=== PATIENT | female | born 1955 | race Caucasian/White ===

== ENCOUNTER 2017-08-31 08:08 | Inpatient (IN) | payer SELFPAY ==
[~2017-08-31] VITALS: Ht 147.3 cm; Wt 78.0 kg
[2017-08-31 08:47] LABS: Basophils # (auto) 0.1 uL; Basophils % (auto) 0.9 % (0.0-2.0); Eosinophils # (auto) 0.2 uL; Eosinophils % (auto) 2.7 % (0.0-7.0); Hematocrit 37.3 % (36.0-46.0); Hemoglobin 12.8 g/dL (12.2-16.2); Lymphocytes % (auto) 34.1 % (10.0-50.0); Mean Corpuscular Hgb Conc. 34.2 g/dL (32.0-36.0); Mean Corpuscular Volume 96.5 fL (80.0-100.0); Monocytes # (auto) 0.6 uL; Monocytes % (auto) 7.2 % (0.0-12.0); Neutrophils # (auto) 4.8 uL; Neutrophils % (auto) 55.1 % (37.0-80.0); Nucleated Red Blood Cells % 0.1 %; Platelet Count (auto) 77 10^3/uL (140-450); Red Blood Cells 3.86 10^6/uL (4.0-5.20); Red Cell Distribution Width 13.5 % (11.8-14.3); White Blood Cell 8.8 10^3/uL (4.4-10.8)
[2017-08-31] MEDS ORDERED: PANTOPRAZOLE 80 MG in SODIUM CHL 0.9% 60 ML IV ONE (09:00)
[2017-08-31] MEDS ORDERED: OCTREOTIDE ACETATE 100 MCG in SODIUM CHL 0.9% 50 ML IV ONE (09:00)
[2017-08-31 09:03] LABS: Albumin 2.5 g/dL (3.4-5.0); BUN/Creatinine Ratio 40.3; Calcium 8.1 mg/dL (8.5-10.1); Potassium 4.4 mmol/L (3.5-5.1)
[2017-08-31 09:05] LABS: Bilirubin, Total 1.3 mg/dL (0.2-1.0); Total Protein 6.3 g/dL (6.4-8.2)
[2017-08-31 09:07] LABS: INR 1.16 (0.9-1.15); Partial Thromboplastin Time 26.5 sec (22.64-33.71); Prothrombin Time 12.7 sec (9.37-12.3)
[2017-08-31 10:33] LABS: Urine Bacteria FEW /hpf (None Seen); Urine Blood 1+ /uL (Negative); Urine Specific Gravity 1.009 (1.001-1.035); Urine WBC 12 /hpf (0 - 5)
[2017-08-31] MEDS: OCTREOTIDE ACETATE 500 MCG in SODIUM CHL 0.9% 99 ML IV SCH ×2 (10:33→20:15)
[2017-08-31] MEDS ORDERED: MIDAZOLAM HCL 5 MG/ML-1ML VIAL ONE (11:37)
[2017-08-31] MEDS ORDERED: fentaNYL CITRATE 100 MCG/2 ML VL ONE (11:37)
[2017-08-31] MEDS ORDERED: LIDOCAINE VISCOUS 2% 15ML UD ONE (11:37)
[2017-08-31] MEDS ORDERED: diphenhdrAMINE HCL 50 MG/1 ML VL ONE (11:40)
[2017-08-31] MEDS ORDERED: METOCLOPRAMIDE HCL 5MG/ml INJ 2ml VIAL IV ONE (11:45)
[2017-08-31] MEDS ORDERED: diphenhdrAMINE HCL 50 MG/1 ML VL IV ONE (12:00)
[2017-08-31] MEDS ORDERED: PANTOPRAZOLE 40 MG/10 ML VIAL IV ONE (13:00)
[2017-08-31] MEDS ORDERED: cefTRIAXone 1GM/10ml IVPUSH 10 ML IV ONE (13:00)
[2017-08-31] MEDS ORDERED: LORazepam 2MG/ML-1ML VIAL IV PRN (13:00)
[2017-08-31] MEDS ORDERED: NITROGLYCERIN 0.4 MG SL TAB SL PRN (13:00)
[2017-08-31] MEDS ORDERED: MORPHINE SULFATE 8mg/ml INJ SDV IV PRN (13:00)
[2017-08-31] MEDS ORDERED: DEXTROSE (50%) 50ML SYRG IV PRN (13:00)
[2017-08-31] MEDS ORDERED: MORPHINE SULFATE 4 MG/ML SYR/VIAL IV PRN ×2 (13:00)
[2017-08-31 13:53] LABS: Amylase 66 U/L (25-115); Lipase 357 U/L (73-393)
[2017-08-31] MEDS: SODIUM CHLORIDE 0.9% 1,000 ML IV SCH ×2 (14:32→20:50)
[2017-08-31] MEDS: metroNIDAZOLE 500MG/100ML 100 ML IV SCH ×2 (14:48→22:00)
[2017-08-31] MEDS: LACTULOSE 20Gm/30ML SOLN PO SCH ×2 (14:48→19:00)
[2017-08-31] MEDS: ACCU-CHEK COMFORT CURVE STRIP VI SCH ×2 (16:00→20:00)
[2017-08-31] MEDS: InsuLIN REG 1unit/0.01ml Soln (100units/ml) SC SCH ×2 (16:50→20:45)
[2017-08-31 18:12] LABS: Hematocrit 30.1 % (36.0-46.0); Hemoglobin 10.4 g/dL (12.2-16.2)
[2017-09-01 01:40] LABS: Hematocrit 26.6 % (36.0-46.0); Hemoglobin 9.2 g/dL (12.2-16.2)
[2017-09-01] MEDS: LACTULOSE 20Gm/30ML SOLN PO SCH ×4 (02:22→19:48)
[2017-09-01] MEDS: ACCU-CHEK COMFORT CURVE STRIP VI SCH ×6 (04:00→19:51)
[2017-09-01] MEDS: InsuLIN REG 1unit/0.01ml Soln (100units/ml) SC SCH ×6 (04:00→19:54)
[2017-09-01] MEDS: SODIUM CHLORIDE 0.9% 1,000 ML IV SCH ×2 (04:50→12:05)
[2017-09-01] MEDS: metroNIDAZOLE 500MG/100ML 100 ML IV SCH ×2 (06:14→13:42)
[2017-09-01] MEDS: OCTREOTIDE ACETATE 500 MCG in SODIUM CHL 0.9% 99 ML IV SCH ×2 (06:23→17:02)
[2017-09-01 07:17] LABS: Hemoglobin 8.9 g/dL (12.2-16.2)
[2017-09-01 07:19] LABS: Hematocrit 25.5 % (36.0-46.0)
[2017-09-01] MEDS: cefTRIAXone 1GM/10ml IVPUSH 10 ML IV SCH (09:19)
[2017-09-01 16:35] LABS: Basophils # (auto) 0 uL; Eosinophils # (auto) 0.1 uL; Eosinophils % (auto) 2.8 % (0.0-7.0); Hemoglobin 9.3 g/dL (12.2-16.2); Lymphocytes # (auto) 1.7 uL; Monocytes # (auto) 0.3 uL; Red Cell Distribution Width 13.7 % (11.8-14.3); White Blood Cell 4.9 10^3/uL (4.4-10.8)
[2017-09-01 16:37] LABS: Basophils % (auto) 0.6 % (0.0-2.0); Hematocrit 26.9 % (36.0-46.0); Lymphocytes % (auto) 34.5 % (10.0-50.0); Mean Corpuscular Hemoglobin 33.6 pg (28.0-32.0); Mean Corpuscular Hgb Conc. 34.5 g/dL (32.0-36.0); Mean Corpuscular Volume 97.4 fL (80.0-100.0); Monocytes % (auto) 6.1 % (0.0-12.0); Neutrophils # (auto) 2.8 uL; Nucleated Red Blood Cells % 0.2 %; Platelet Count (auto) 61 10^3/uL (140-450); Red Blood Cells 2.76 10^6/uL (4.0-5.20)
[2017-09-01 20:30] VITALS: BP 119/88
[2017-09-01 20:38] VITALS: BP 119/88
[2017-09-02 00:01] VITALS: BP 109/57
[2017-09-02] MEDS: InsuLIN REG 1unit/0.01ml Soln (100units/ml) SC SCH ×7 (00:05→23:51)
[2017-09-02] MEDS: SODIUM CHLORIDE 0.9% 1,000 ML IV SCH ×4 (00:35→20:26)
[2017-09-02] MEDS: LACTULOSE 20Gm/30ML SOLN PO SCH ×3 (01:00→23:01)
[2017-09-02] MEDS ORDERED: MULTCAP PO (01:34)
[2017-09-02] MEDS ORDERED: GLIP-116 PO (01:34)
[2017-09-02] MEDS ORDERED: SITA50TA28 PO (01:34)
[2017-09-02] MEDS ORDERED: CALC667C PO ×2 (01:34)
[2017-09-02] MEDS ORDERED: AMLO5TAB2 PO (01:34)
[2017-09-02] MEDS ORDERED: FERR-7 PO (01:34)
[2017-09-02] MEDS: OCTREOTIDE ACETATE 500 MCG in SODIUM CHL 0.9% 99 ML IV SCH (03:31)
[2017-09-02 04:00] VITALS: BP 112/62
[2017-09-02] MEDS: ACCU-CHEK COMFORT CURVE STRIP VI SCH ×7 (04:37→23:50)
[2017-09-02 05:21] LABS: Basophils # (auto) 0 uL; Basophils % (auto) 0.7 % (0.0-2.0); Eosinophils # (auto) 0.2 uL; Eosinophils % (auto) 4.2 % (0.0-7.0); Hematocrit 28.3 % (36.0-46.0); Hemoglobin 9.8 g/dL (12.2-16.2); Lymphocytes # (auto) 1.7 uL; Lymphocytes % (auto) 35.8 % (10.0-50.0); Mean Corpuscular Hemoglobin 33.6 pg (28.0-32.0); Mean Corpuscular Hgb Conc. 34.5 g/dL (32.0-36.0); Mean Corpuscular Volume 97.2 fL (80.0-100.0); Monocytes # (auto) 0.3 uL; Monocytes % (auto) 6.4 % (0.0-12.0); Neutrophils # (auto) 2.4 uL; Neutrophils % (auto) 52.9 % (37.0-80.0); Nucleated Red Blood Cells % 0.1 %; Platelet Count (auto) 60 10^3/uL (140-450); Red Blood Cells 2.91 10^6/uL (4.0-5.20); Red Cell Distribution Width 13.8 % (11.8-14.3); White Blood Cell 4.6 10^3/uL (4.4-10.8)
[2017-09-02 05:41] LABS: BUN/Creatinine Ratio 16.3; Calcium 7.3 mg/dL (8.5-10.1); Potassium 3.3 mmol/L (3.5-5.1)
[2017-09-02 05:42] LABS: Albumin 2.4 g/dL (3.4-5.0); Bilirubin, Direct 0.3 mg/dL (0-0.2); Bilirubin, Total 0.7 mg/dL (0.2-1.0); Magnesium 1.7 mg/dL (1.6-2.6)
[2017-09-02 05:45] LABS: INR 1.18 (0.9-1.15); Partial Thromboplastin Time 27.3 sec (22.64-33.71); Prothrombin Time 12.9 sec (9.37-12.3)
[2017-09-02] MEDS: cefTRIAXone 1GM/10ml IVPUSH 10 ML IV SCH (08:25)
[2017-09-02] MEDS ORDERED: POTASSIUM CHL 10% (20 MEQ/15ML) 15ml ORAL SOLN PO ONE (09:45)
[2017-09-02] MEDS: PROMETHAZINE HCL 25 MG/ML 1ML IV PRN (11:44)
[2017-09-02 11:50] VITALS: BP 143/56
[2017-09-02 17:00] VITALS: BP 111/41
[2017-09-02 22:00] VITALS: BP 153/72
[2017-09-03] MEDS: InsuLIN REG 1unit/0.01ml Soln (100units/ml) SC SCH ×5 (03:37→20:00)
[2017-09-03] MEDS: ACCU-CHEK COMFORT CURVE STRIP VI SCH ×5 (03:37→20:00)
[2017-09-03] MEDS: SODIUM CHLORIDE 0.9% 1,000 ML IV SCH ×3 (04:12→21:08)
[2017-09-03 05:00] VITALS: BP 115/72
[2017-09-03 06:25] LABS: Basophils # (auto) 0 uL; Eosinophils # (auto) 0.2 uL; Hemoglobin 9.8 g/dL (12.2-16.2); Lymphocytes # (auto) 1.6 uL; Monocytes # (auto) 0.3 uL
[2017-09-03 06:29] LABS: Basophils % (auto) 0.6 % (0.0-2.0); Eosinophils % (auto) 4.7 % (0.0-7.0); Lymphocytes % (auto) 34.8 % (10.0-50.0); Mean Corpuscular Hemoglobin 34.1 pg (28.0-32.0); Mean Corpuscular Volume 97.4 fL (80.0-100.0); Neutrophils # (auto) 2.4 uL; Neutrophils % (auto) 52.9 % (37.0-80.0); Nucleated Red Blood Cells % 0.2 %; Platelet Count (auto) 63 10^3/uL (140-450); Red Blood Cells 2.88 10^6/uL (4.0-5.20); Red Cell Distribution Width 13.6 % (11.8-14.3); White Blood Cell 4.5 10^3/uL (4.4-10.8)
[2017-09-03 06:51] LABS: BUN/Creatinine Ratio 21.6; Calcium 7.6 mg/dL (8.5-10.1); Potassium 3.7 mmol/L (3.5-5.1)
[2017-09-03 09:04] VITALS: BP 119/53
[2017-09-03 09:24] LABS: Hepatitis B Surface Antibody Negative
[2017-09-03] MEDS: cefTRIAXone 1GM/10ml IVPUSH 10 ML IV SCH (09:27)
[2017-09-03] MEDS: PANTOPRAZOLE 40 MG TAB PO SCH ×2 (09:28→21:09)
[2017-09-03] MEDS: PROMETHAZINE HCL 25 MG/ML 1ML IV PRN (09:30)
[2017-09-03] MEDS: LACTULOSE 20Gm/30ML SOLN PO SCH ×2 (09:42→21:08)
[2017-09-03 09:45] LABS: Hepatitis A Total Antibody Positive
[2017-09-03 10:04] LABS: Hepatitis B Core Total AB Negative; Hepatitis B Surface Antigen Negative (Negative); Hepatitis C Antibody Negative (Negative)
[2017-09-03] MEDS ORDERED: ACETAMINOPHEN 325 MG TAB PO PRN (12:00)
[2017-09-03] MEDS ORDERED: ACETAMINOPHEN 325 MG TAB PO ONE (12:01)
[2017-09-03 13:00] VITALS: BP 112/60
[2017-09-03] MEDS ORDERED: OCTREOTIDE ACETATE 100 MCG in SODIUM CHL 0.9% 50 ML IV ONE (13:45)
[2017-09-03] MEDS: OCTREOTIDE ACETATE 500 MCG in SODIUM CHL 0.9% 99 ML IV SCH (15:09)
[2017-09-03] MEDS ORDERED: IOHEXOL 350 MG/ML 100ML IJ ONE (15:22)
[2017-09-03 16:23] VITALS: BP 103/55
[2017-09-03 18:03] LABS: Hematocrit 25.7 % (36.0-46.0); Hemoglobin 8.8 g/dL (12.2-16.2)
[2017-09-03 19:50] VITALS: BP 120/59
[2017-09-04] VITALS: BP 117/57
[2017-09-04] MEDS: InsuLIN REG 1unit/0.01ml Soln (100units/ml) SC SCH ×6 (00:30→20:00)
[2017-09-04 00:55] LABS: Hemoglobin 7.8 g/dL (12.2-16.2)
[2017-09-04 00:57] LABS: Hematocrit 22.2 % (36.0-46.0)
[2017-09-04] MEDS: ACCU-CHEK COMFORT CURVE STRIP VI SCH ×6 (01:12→21:22)
[2017-09-04] MEDS: OCTREOTIDE ACETATE 500 MCG in SODIUM CHL 0.9% 99 ML IV SCH ×3 (01:12→21:22)
[2017-09-04 04:00] VITALS: BP 132/66
[2017-09-04 04:55] LABS: Eosinophils # (auto) 0.2 uL; Hemoglobin 7.7 g/dL (12.2-16.2); Nucleated Red Blood Cells % 0.2 %
[2017-09-04 04:57] LABS: Basophils # (auto) 0 uL; Basophils % (auto) 0.6 % (0.0-2.0); Eosinophils % (auto) 3.1 % (0.0-7.0); Hematocrit 21.9 % (36.0-46.0); Lymphocytes # (auto) 1.7 uL; Lymphocytes % (auto) 28.9 % (10.0-50.0); Mean Corpuscular Hemoglobin 34.3 pg (28.0-32.0); Mean Corpuscular Hgb Conc. 35.1 g/dL (32.0-36.0); Monocytes # (auto) 0.4 uL; Monocytes % (auto) 6.2 % (0.0-12.0); Neutrophils # (auto) 3.5 uL; Neutrophils % (auto) 61.2 % (37.0-80.0); Platelet Count (auto) 70 10^3/uL (140-450); Red Blood Cells 2.24 10^6/uL (4.0-5.20); Red Cell Distribution Width 13.8 % (11.8-14.3); White Blood Cell 5.7 10^3/uL (4.4-10.8)
[2017-09-04 05:09] LABS: Calcium 7.3 mg/dL (8.5-10.1); Potassium 3.5 mmol/L (3.5-5.1)
[2017-09-04 05:11] LABS: BUN/Creatinine Ratio 20.7
[2017-09-04] MEDS: SODIUM CHLORIDE 0.9% 1,000 ML IV SCH ×3 (06:08→21:22)
[2017-09-04 07:58] VITALS: BP 117/68
[2017-09-04] MEDS: LACTULOSE 20Gm/30ML SOLN PO SCH ×3 (09:30→21:59)
[2017-09-04] MEDS: PANTOPRAZOLE 40 MG TAB PO SCH ×3 (09:30→21:59)
[2017-09-04] MEDS: cefTRIAXone 1GM/10ml IVPUSH 10 ML IV SCH (09:31)
[2017-09-04] MEDS ORDERED: IODIXANOL 320MG/ML 100ML BTL IV ONE (09:53)
[2017-09-04] MEDS ORDERED: LIDOCAINE 2%HCL (LOCAL ANESTH.) INJ 20ML MDV ONE (09:54)
[2017-09-04] MEDS ORDERED: PNEUMOCOCCAL VACC POLYS 25 MCG/0.5 ML VIAL SUBCUT ONE (10:00)
[2017-09-04] MEDS ORDERED: MIDAZOLAM HCL 1MG/1ML-2 ML VIAL ONE (10:35)
[2017-09-04] MEDS ORDERED: fentaNYL CITRATE 100 MCG/2 ML VL ONE (10:35)
[2017-09-04] MEDS ORDERED: IOHEXOL 350 MG/ML 100ML IJ ONE (10:38)
[2017-09-04 12:00] VITALS: BP 145/71
[2017-09-04] MEDS ORDERED: GELATIN 1 SPONGE SIZE 50 TOP ONE (12:24)
[2017-09-04 16:00] VITALS: BP 114/40
[2017-09-04] MEDS: PROMETHAZINE HCL 25 MG/ML 1ML IV PRN (17:15)
[2017-09-04 18:45] LABS: Hematocrit 24.3 % (36.0-46.0); Hemoglobin 7.9 g/dL (12.2-16.2)
[2017-09-04 20:04] VITALS: BP 124/58
[2017-09-05] VITALS (7 sets, daily range): BP systolic 116–123; BP diastolic 50–66
[2017-09-05] MEDS: ACCU-CHEK COMFORT CURVE STRIP VI SCH ×7 (00:52→23:08)
[2017-09-05 00:58] LABS: Hemoglobin 7.4 g/dL (12.2-16.2)
[2017-09-05] MEDS: InsuLIN REG 1unit/0.01ml Soln (100units/ml) SC SCH ×7 (04:00→23:09)
[2017-09-05] MEDS: SODIUM CHLORIDE 0.9% 1,000 ML IV SCH ×2 (04:04→15:26)
[2017-09-05 05:54] LABS: BUN/Creatinine Ratio 16.7; Calcium 7.2 mg/dL (8.5-10.1); Potassium 3.7 mmol/L (3.5-5.1)
[2017-09-05 05:55] LABS: Basophils # (auto) 0 uL; Hemoglobin 7.4 g/dL (12.2-16.2); Lymphocytes # (auto) 1.3 uL; Monocytes # (auto) 0.5 uL; Neutrophils # (auto) 6.2 uL; Red Cell Distribution Width 14.4 % (11.8-14.3); White Blood Cell 8.2 10^3/uL (4.4-10.8)
[2017-09-05 05:57] LABS: Basophils % (auto) 0.5 % (0.0-2.0); Eosinophils # (auto) 0.1 uL; Eosinophils % (auto) 1.8 % (0.0-7.0); Hematocrit 21.7 % (36.0-46.0); Lymphocytes % (auto) 16.1 % (10.0-50.0); Mean Corpuscular Hemoglobin 33.7 pg (28.0-32.0); Mean Corpuscular Hgb Conc. 34.2 g/dL (32.0-36.0); Mean Corpuscular Volume 98.5 fL (80.0-100.0); Monocytes % (auto) 6.4 % (0.0-12.0); Neutrophils % (auto) 75.2 % (37.0-80.0); Nucleated Red Blood Cells % 0.2 %; Platelet Count (auto) 77 10^3/uL (140-450)
[2017-09-05] MEDS: OCTREOTIDE ACETATE 500 MCG in SODIUM CHL 0.9% 99 ML IV SCH ×2 (06:29→17:56)
[2017-09-05] MEDS: cefTRIAXone 1GM/10ml IVPUSH 10 ML IV SCH (09:06)
[2017-09-05] MEDS: PANTOPRAZOLE 40 MG TAB PO SCH ×2 (09:57→22:12)
[2017-09-05] MEDS: LACTULOSE 20Gm/30ML SOLN PO SCH ×2 (09:58→22:12)
[2017-09-05 12:17] LABS: Hemoglobin 7.9 g/dL (12.2-16.2)
[2017-09-05 12:19] LABS: Hematocrit 22.9 % (36.0-46.0)
[2017-09-05 18:21] LABS: Hematocrit 21.4 % (36.0-46.0); Hemoglobin 7.4 g/dL (12.2-16.2)
[2017-09-06] VITALS (24 sets, daily range): BP systolic 112–133; BP diastolic 40–69
[2017-09-06] MEDS: SODIUM CHLORIDE 0.9% 1,000 ML IV SCH ×3 (00:41→13:06)
[2017-09-06 01:12] LABS: Hematocrit 19.6 % (36.0-46.0)
[2017-09-06 01:23] LABS: Hemoglobin 6.9 g/dL (12.2-16.2)
[2017-09-06 02:28] LABS: BUN/Creatinine Ratio 9.7; Potassium 3.3 mmol/L (3.5-5.1)
[2017-09-06] MEDS: ACCU-CHEK COMFORT CURVE STRIP VI SCH ×5 (04:12→20:00)
[2017-09-06] MEDS: InsuLIN REG 1unit/0.01ml Soln (100units/ml) SC SCH ×5 (04:14→20:35)
[2017-09-06] MEDS: OCTREOTIDE ACETATE 500 MCG in SODIUM CHL 0.9% 99 ML IV SCH (04:18)
[2017-09-06] MEDS: cefTRIAXone 1GM/10ml IVPUSH 10 ML IV SCH (08:42)
[2017-09-06] MEDS: LACTULOSE 20Gm/30ML SOLN PO SCH ×2 (10:00→22:00)
[2017-09-06] MEDS ORDERED: IOHEXOL 300 MG/ML 100ML BOTTLE IJ ONE (12:01)
[2017-09-06] MEDS: PANTOPRAZOLE 40 MG TAB PO SCH ×2 (13:06→22:00)
[2017-09-06 15:09] LABS: Basophils # (auto) 0 uL; Basophils % (auto) 0.6 % (0.0-2.0); Eosinophils # (auto) 0.1 uL; Eosinophils % (auto) 1.9 % (0.0-7.0); Hematocrit 28.3 % (36.0-46.0); Hemoglobin 9.7 g/dL (12.2-16.2); Lymphocytes # (auto) 1.1 uL; Lymphocytes % (auto) 16.4 % (10.0-50.0); Mean Corpuscular Hemoglobin 31.9 pg (28.0-32.0); Mean Corpuscular Hgb Conc. 34.2 g/dL (32.0-36.0); Mean Corpuscular Volume 93.3 fL (80.0-100.0); Monocytes # (auto) 0.5 uL; Monocytes % (auto) 7.8 % (0.0-12.0); Neutrophils # (auto) 4.9 uL; Neutrophils % (auto) 73.3 % (37.0-80.0); Nucleated Red Blood Cells % 0.4 %; Platelet Count (auto) 68 10^3/uL (140-450); Red Blood Cells 3.04 10^6/uL (4.0-5.20); Red Cell Distribution Width 16.1 % (11.8-14.3); White Blood Cell 6.7 10^3/uL (4.4-10.8)
[2017-09-07] MEDS: ACCU-CHEK COMFORT CURVE STRIP VI SCH ×6 (00:13→21:25)
[2017-09-07] MEDS: InsuLIN REG 1unit/0.01ml Soln (100units/ml) SC SCH ×6 (00:13→21:46)
[2017-09-07 05:00] VITALS: BP 118/43
[2017-09-07 06:30] LABS: Hematocrit 25.6 % (36.0-46.0); Hemoglobin 8.9 g/dL (12.2-16.2)
[2017-09-07] MEDS: SODIUM CHLORIDE 0.9% 1,000 ML IV SCH (07:00)
[2017-09-07 09:00] VITALS: BP 125/69
[2017-09-07] MEDS: PANTOPRAZOLE 40 MG TAB PO SCH ×2 (09:07→21:25)
[2017-09-07] MEDS: LACTULOSE 20Gm/30ML SOLN PO SCH ×2 (09:08→22:00)
[2017-09-07 13:00] VITALS: BP 130/63
[2017-09-07 17:00] VITALS: BP 134/63
[2017-09-07 22:00] VITALS: BP 137/64
[2017-09-08] MEDS: ACCU-CHEK COMFORT CURVE STRIP VI SCH ×5 (00:58→16:00)
[2017-09-08] MEDS: InsuLIN REG 1unit/0.01ml Soln (100units/ml) SC SCH ×5 (00:58→16:00)
[2017-09-08] MEDS: SODIUM CHLORIDE 0.9% 1,000 ML IV SCH (03:37)
[2017-09-08 05:00] VITALS: BP 119/53
[2017-09-08 06:50] LABS: Hemoglobin 8.9 g/dL (12.2-16.2)
[2017-09-08 08:43] VITALS: BP 104/53
[2017-09-08] MEDS: LACTULOSE 20Gm/30ML SOLN PO SCH (09:36)
[2017-09-08] MEDS: PANTOPRAZOLE 40 MG TAB PO SCH (09:36)
[2017-09-08 12:30] VITALS: BP 110/53
[2017-09-08 16:04] VITALS: BP 110/53
[2017-09-08 16:47] VITALS: BP 135/67
== END 2017-09-08 19:25 | disposition home or self-care (01) | DRG 423 ==
LOC: EDBD 08:08 → ER 08:13 → TELE 08:14 → DOU IN ICU 09-01 20:18 → TELE-CENTR 09-02 16:05 → DOU IN ICU 09-03 18:21 → TELE-WESTW 09-06 22:53
PROVIDERS: ADMIT Internal Medicine; ATTEND Internal Medicine Pulmonary Disease
PROC: 0DJ08ZZ Inspection of Upper Intestinal Tract, Via Natural or Artificial Opening Endoscopic (ICD-10-PCS; principal; 2017-08-31 13:34)
PROC: 06L Lower Veins, Occlusion (ICD-10-PCS; 2017-09-04)
PROC: 30233N1 Transfusion of Nonautologous Red Blood Cells into Peripheral Vein, Percutaneous Approach (ICD-10-PCS; 2017-09-06)
DX: K74.60 Unspecified cirrhosis of liver (principal); I85.11 Secondary esophageal varices with bleeding; D69.6 Thrombocytopenia, unspecified; E44.0 Moderate protein-calorie malnutrition; K72.90 Hepatic failure, unspecified without coma; D62 Acute posthemorrhagic anemia; E11.65 Type 2 diabetes mellitus with hyperglycemia; N39.0 Urinary tract infection, site not specified; B96.20 Unspecified Escherichia coli [E. coli] as the cause of diseases classified elsewhere; E66.9 Obesity, unspecified; E87.6 Hypokalemia; I10 Essential (primary) hypertension; I86.4 Gastric varices; K29.70 Gastritis, unspecified, without bleeding; K76.0 Fatty (change of) liver, not elsewhere classified; Z68.35 Body mass index [BMI] 35.0-35.9, adult; Z80.0 Family history of malignant neoplasm of digestive organs
CPT/HCPCS: 36415; 71045; 74176; 74177; 76000; 76937; 80048; 80053; 80076; 81001; 82140; 82150; 82962; 83036; 83690; 83735; 85014; 85018; 85025; 85045; 85610; 85730; 86704; 86706; 86708; 86803; 86850; 86900; 86901; 86920; 87040; 87081; 87086; 87088; 87186; 87340; 93005; 96365; 96367; 96375; 99152; 99153; 99291; C1769; C9113; J1815; J2250; J3490; Q9967

== ENCOUNTER → 2018-01-08 | Outpatient (CLI) | payer MEDICAID ==
[~2018-01-08] MED LIST: CALC667C PO; FERR-7 PO; GLIP-116 PO; MULTCAP PO; SITA50TA28 PO
[2018-01-08 09:09] LABS: Basophils # (auto) 0 uL; Monocytes # (auto) 0.3 uL; Nucleated Red Blood Cells % 0.1 %; White Blood Cell 3.6 10^3/uL (4.4-10.8)
[2018-01-08 09:11] LABS: Basophils % (auto) 0.5 % (0.0-2.0); Eosinophils # (auto) 0.2 uL; Eosinophils % (auto) 4.6 % (0.0-7.0); Hematocrit 36.3 % (36.0-46.0); Hemoglobin 11.8 g/dL (12.2-16.2); Lymphocytes % (auto) 28.6 % (10.0-50.0); Mean Corpuscular Hemoglobin 24.8 pg (28.0-32.0); Mean Corpuscular Hgb Conc. 32.5 g/dL (32.0-36.0); Mean Corpuscular Volume 76.3 fL (80.0-100.0); Neutrophils # (auto) 2.1 uL; Neutrophils % (auto) 58.3 % (37.0-80.0); Platelet Count (auto) 65 10^3/uL (140-450); Red Blood Cells 4.76 10^6/uL (4.0-5.20)
[2018-01-08 09:21] LABS: INR 1.07 (0.9-1.15); Prothrombin Time 11.4 sec (9.27-12.13)
[2018-01-08 09:27] LABS: Albumin 3.2 g/dL (3.4-5.0); BUN/Creatinine Ratio 16.4; Calcium 8.3 mg/dL (8.5-10.1); Potassium 3.9 mmol/L (3.5-5.1)
[2018-01-08 09:29] LABS: Bilirubin, Total 1.2 mg/dL (0.2-1.0); Total Protein 7.4 g/dL (6.4-8.2)
[2018-01-08 09:33] LABS: Red Cell Distribution Width 21.2 % (11.8-14.3)
== END | disposition home or self-care (01) ==
LOC: LAB 08:02
PROVIDERS: ATTEND Internal Medicine Gastroenterology
DX: R10.9 Unspecified abdominal pain (principal); E11.9 Type 2 diabetes mellitus without complications; I10 Essential (primary) hypertension
CPT/HCPCS: 36415; 80053; 82105; 85025; 85610

== ENCOUNTER 2018-03-22 22:44 | Inpatient (IN) | payer MEDICAID ==
[~2018-03-22] VITALS: Ht 152.4 cm; Wt 77.1 kg
[2018-03-22 23:34] LABS: Basophils # (auto) 0 uL; Basophils % (auto) 0.5 % (0.0-2.0); Eosinophils # (auto) 0.1 uL; Eosinophils % (auto) 2.5 % (0.0-7.0); Hematocrit 40.2 % (36.0-46.0); Hemoglobin 13.2 g/dL (12.2-16.2); Lymphocytes # (auto) 1.3 uL; Lymphocytes % (auto) 31.7 % (10.0-50.0); Mean Corpuscular Hemoglobin 27.8 pg (28.0-32.0); Mean Corpuscular Hgb Conc. 32.9 g/dL (32.0-36.0); Mean Corpuscular Volume 84.5 fL (80.0-100.0); Monocytes # (auto) 0.4 uL; Monocytes % (auto) 9.7 % (0.0-12.0); Neutrophils # (auto) 2.3 uL; Neutrophils % (auto) 55.6 % (37.0-80.0); Nucleated Red Blood Cells % 0.2 %; Platelet Count (auto) 66 10^3/uL (140-450); Red Blood Cells 4.75 10^6/uL (4.0-5.20); Red Cell Distribution Width 19.8 % (11.8-14.3); White Blood Cell 4.2 10^3/uL (4.4-10.8)
[2018-03-22 23:45] LABS: Albumin 3.1 g/dL (3.4-5.0); BUN/Creatinine Ratio 16.5; Calcium 8.5 mg/dL (8.5-10.1); Potassium 3.9 mmol/L (3.5-5.1)
[2018-03-22 23:47] LABS: Bilirubin, Total 0.7 mg/dL (0.2-1.0); Total Protein 7.7 g/dL (6.4-8.2)
[2018-03-23 00:03] LABS: Urine Bacteria NONE SEEN /hpf (None Seen); Urine Blood Negative /uL (Negative); Urine Specific Gravity 1.022 (1.001-1.035); Urine WBC <1 /hpf (0 - 5)
[2018-03-23] MEDS ORDERED: InsuLIN REG 1unit/0.01ml Soln (100units/ml) IV ONE (00:30)
[2018-03-23] MEDS ORDERED: InsuLIN REG 1unit/0.01ml Soln (100units/ml) ONE (00:34)
[2018-03-23] MEDS ORDERED: DEXTROSE (50%) 50ML SYRG IV PRN (02:45)
[2018-03-23] MEDS ORDERED: ONDANSETRON HCL 4 MG/2 ML VIAL IV PRN (02:45)
[2018-03-23] MEDS ORDERED: TEMAZEPAM 15 MG CAP PO PRN (02:45)
[2018-03-23] MEDS ORDERED: cloNIDine HCL 0.1 MG TAB PO PRN (02:45)
[2018-03-23 05:00] VITALS: BP 131/63
[2018-03-23] MEDS: InsuLIN REG 1unit/0.01ml Soln (100units/ml) SC SCH ×3 (06:23→17:41)
[2018-03-23] MEDS: ACCU-CHEK COMFORT CURVE STRIP VI SCH ×3 (06:23→17:41)
[2018-03-23 09:43] VITALS: BP 116/62
[2018-03-23] MEDS ORDERED: HCTZ 25 MG TAB PO SCH (10:00)
[2018-03-23] MEDS: FAMOTIDINE 20 MG TAB PO SCH ×2 (10:04→22:01)
[2018-03-23] MEDS: LISINOPRIL 20 MG TAB PO SCH (10:05)
[2018-03-23] MEDS: amLODIPine BESYLATE 5 MG TAB PO SCH (10:07)
[2018-03-23 14:07] VITALS: BP 133/55
[2018-03-23] MEDS ORDERED: LORazepam 2MG/ML-1ML VIAL IV PRN (15:30)
[2018-03-23] MEDS ORDERED: IOHEXOL 350 MG/ML 100ML IJ ONE (15:56)
[2018-03-23 16:31] LABS: Cholesterol 157 mg/dL (< 200); HDL Cholesterol 54 mg/dL (40-59); LDL Cholesterol 95 mg/dL (< 100); Triglycerides 165 mg/dL (< 150)
[2018-03-23] MEDS: SODIUM CHLORIDE 0.9% 1,000 ML IV SCH (17:00)
[2018-03-23 17:02] VITALS: BP 125/78
[2018-03-23] MEDS: glipiZIDE 5 MG TAB PO SCH (17:41)
[2018-03-23] MEDS ORDERED: metFORMIN HYDROCHLORIDE 500 MG TAB PO SCH (18:00)
[2018-03-23 22:00] VITALS: BP 122/66
[2018-03-23] MEDS: ATORVASTATIN 20 MG TAB PO SCH (22:01)
[2018-03-24] MEDS: SODIUM CHLORIDE 0.9% 1,000 ML IV SCH ×4 (00:24→23:57)
[2018-03-24] MEDS: ACCU-CHEK COMFORT CURVE STRIP VI SCH ×5 (00:24→23:53)
[2018-03-24] MEDS: InsuLIN REG 1unit/0.01ml Soln (100units/ml) SC SCH ×5 (00:25→23:53)
[2018-03-24 05:00] VITALS: BP 103/56
[2018-03-24 05:20] LABS: Basophils # (auto) 0 uL; Eosinophils # (auto) 0.1 uL; Lymphocytes # (auto) 1.5 uL; Nucleated Red Blood Cells % 0.1 %
[2018-03-24 05:23] LABS: Basophils % (auto) 0.7 % (0.0-2.0); Eosinophils % (auto) 3.5 % (0.0-7.0); Hematocrit 35.4 % (36.0-46.0); Lymphocytes % (auto) 37.1 % (10.0-50.0); Mean Corpuscular Hemoglobin 28.3 pg (28.0-32.0); Mean Corpuscular Hgb Conc. 33.8 g/dL (32.0-36.0); Mean Corpuscular Volume 83.7 fL (80.0-100.0); Monocytes # (auto) 0.4 uL; Monocytes % (auto) 9.2 % (0.0-12.0); Neutrophils % (auto) 49.5 % (37.0-80.0); Platelet Count (auto) 62 10^3/uL (140-450); Red Blood Cells 4.23 10^6/uL (4.0-5.20); Red Cell Distribution Width 19.8 % (11.8-14.3)
[2018-03-24 05:48] LABS: Potassium 3.4 mmol/L (3.5-5.1)
[2018-03-24 05:58] LABS: Albumin 2.6 g/dL (3.4-5.0); BUN/Creatinine Ratio 22.2; Bilirubin, Total 0.9 mg/dL (0.2-1.0); Calcium 7.8 mg/dL (8.5-10.1); Total Protein 6.5 g/dL (6.4-8.2)
[2018-03-24] MEDS: glipiZIDE 5 MG TAB PO SCH ×2 (06:35→17:32)
[2018-03-24] MEDS: FAMOTIDINE 20 MG TAB PO SCH ×2 (09:50→21:43)
[2018-03-24] MEDS: ASPirin-EC 81 mg tab PO SCH (09:50)
[2018-03-24] MEDS: LISINOPRIL 20 MG TAB PO SCH (09:51)
[2018-03-24] MEDS: amLODIPine BESYLATE 5 MG TAB PO SCH (09:54)
[2018-03-24 10:47] VITALS: BP 118/62
[2018-03-24] MEDS ORDERED: POTASSIUM CHL 20 Meq TABLET PO ONE (12:30)
[2018-03-24 13:31] VITALS: BP 127/64
[2018-03-24 17:28] VITALS: BP 133/72
[2018-03-24 21:30] VITALS: BP 130/67
[2018-03-24] MEDS: ATORVASTATIN 20 MG TAB PO SCH (21:42)
[2018-03-25 05:00] VITALS: BP 131/63
[2018-03-25] MEDS: ACCU-CHEK COMFORT CURVE STRIP VI SCH ×3 (06:45→18:00)
[2018-03-25] MEDS: glipiZIDE 5 MG TAB PO SCH ×2 (06:45→18:00)
[2018-03-25] MEDS: InsuLIN REG 1unit/0.01ml Soln (100units/ml) SC SCH ×3 (06:45→18:00)
[2018-03-25] MEDS: metFORMIN HYDROCHLORIDE 500 MG TAB PO SCH ×2 (06:46→18:00)
[2018-03-25 08:07] VITALS: BP 115/68
[2018-03-25] MEDS: SODIUM CHLORIDE 0.9% 1,000 ML IV SCH ×2 (10:17→15:30)
[2018-03-25] MEDS: ASPirin-EC 81 mg tab PO SCH (10:17)
[2018-03-25] MEDS: LISINOPRIL 20 MG TAB PO SCH (10:18)
[2018-03-25] MEDS: amLODIPine BESYLATE 5 MG TAB PO SCH (10:18)
[2018-03-25] MEDS: FAMOTIDINE 20 MG TAB PO SCH (10:18)
[2018-03-25 13:00] VITALS: BP 130/82
[2018-03-25 16:10] VITALS: BP 130/82
[2018-03-25 17:00] VITALS: BP 143/68
== END 2018-03-25 18:00 | disposition home or self-care (01) | DRG 54 ==
LOC: ER 22:44 → OVERFLOW 03-23 02:41 → WEST WING 03-23 03:35
PROVIDERS: ADMIT Nurse Practitioner; ATTEND Internal Medicine
DX: G43.909 Migraine, unspecified, not intractable, without status migrainosus (principal); D69.6 Thrombocytopenia, unspecified; E44.0 Moderate protein-calorie malnutrition; K74.60 Unspecified cirrhosis of liver; E11.65 Type 2 diabetes mellitus with hyperglycemia; D72.819 Decreased white blood cell count, unspecified; I10 Essential (primary) hypertension; Z79.82 Long term (current) use of aspirin; Z79.899 Other long term (current) drug therapy
CPT/HCPCS: 36415; 70450; 70496; 70498; 70551; 80053; 80061; 81001; 82962; 83036; 84484; 85025; 93005; 93306; 96374; G0378; J1815; J2405

== ENCOUNTER 2019-11-30 17:53 | Emergency (ER) | payer MEDICAID ==
[~2019-11-30] VITALS: Ht 147.3 cm; Wt 72.6 kg
[~2019-11-30 17:53] MED LIST changes: -GLIP-116 PO; +GLIP10TA9 PO
[2019-11-30 19:53] LABS: Basophils # (auto) 0.1 10 ^3/uL (0-0.2); Eosinophils # (auto) 0.1 10 ^3/uL (0-0.8); Eosinophils % (auto) 2.1 % (0.0-7.0); Hemoglobin 15.1 g/dL (12.2-16.2); Lymphocytes # (auto) 1.2 10 ^3/uL (0.4-5.4); Lymphocytes % (auto) 20.2 % (10.0-50.0); Mean Corpuscular Hemoglobin 32.1 pg (28.0-32.0); Mean Corpuscular Hgb Conc. 33.6 g/dL (32.0-36.0); Mean Corpuscular Volume 95.6 fL (80.0-100.0); Monocytes # (auto) 0.4 10 ^3/uL (0-1.3); Monocytes % (auto) 6.9 % (0.0-12.0); Neutrophils % (auto) 69.8 % (37.0-80.0); Platelet Count (auto) 82 10^3/uL (140-450); Red Cell Distribution Width 14.7 % (11.8-14.3); White Blood Cell 5.8 10^3/uL (4.4-10.8)
[2019-11-30 20:27] LABS: Albumin 3.7 g/dL (3.4-5.0); Calcium 9.2 mg/dL (8.5-10.1); Potassium 4.3 mmol/L (3.5-5.1)
[2019-11-30 20:31] LABS: BUN/Creatinine Ratio 22.1; Bilirubin, Total 1.4 mg/dL (0.2-1.0); Total Protein 8.4 g/dL (6.4-8.2)
[2019-12-01 02:20] VITALS: BP 118/61
== END 2019-12-01 02:22 | disposition home or self-care (01) ==
LOC: ER 17:53
DX: K62.5 Hemorrhage of anus and rectum (principal); R74.8 Abnormal levels of other serum enzymes; E11.9 Type 2 diabetes mellitus without complications; I10 Essential (primary) hypertension
CPT/HCPCS: 36415; 74176; 80053; 85025

== ENCOUNTER 2022-07-28 18:24 | Inpatient (IN) | payer MEDICARE, MEDICAID ==
[~2022-07-28] VITALS: Ht 147.3 cm; Wt 67.3 kg
[2022-07-28 19:24] LABS: Eosinophils # (auto) 0 10 ^3/uL (0-0.8); Hemoglobin 15.2 g/dL (12.2-16.2); Monocytes # (auto) 0.6 10 ^3/uL (0-1.3); Monocytes % (auto) 5.5 % (0.0-12.0); Red Cell Distribution Width 16.6 % (11.8-14.3)
[2022-07-28 19:26] LABS: Basophils # (auto) 0 10 ^3/uL (0-0.2); Basophils % (auto) 0.3 % (0.0-2.0); Eosinophils % (auto) 0.3 % (0.0-7.0); Lymphocytes % (auto) 9.4 % (10.0-50.0); Mean Corpuscular Hemoglobin 34.6 pg (28.0-32.0); Mean Corpuscular Hgb Conc. 34.6 g/dL (32.0-36.0); Neutrophils # (auto) 9.3 10 ^3/uL (1.6-8.6); Neutrophils % (auto) 84.5 % (37.0-80.0)
[2022-07-28 19:40] LABS: Albumin 2.5 g/dL (3.4-5.0); BUN/Creatinine Ratio 18.8 (10.0-20.0); Calcium 8.2 mg/dL (8.5-10.1); Potassium 4.3 mmol/L (3.5-5.1)
[2022-07-28 19:42] LABS: Lactic Acid w/Reflex 3.2 mmol/L (0.4-2.0)
[2022-07-28 19:50] LABS: Bilirubin, Total 4.4 mg/dL (0.2-1.0); Total Protein 6.8 g/dL (6.4-8.2)
[2022-07-28] MEDS ORDERED: SODIUM CHLORIDE 0.9% 500 ML IV ONE (21:15)
[2022-07-28 21:29] LABS: Urine Bacteria FEW /hpf (None Seen); Urine Blood Negative /uL (Negative); Urine Hyaline Cast FEW /lpf (0 - 2); Urine Specific Gravity 1.029 (1.001-1.035); Urine WBC 12 /hpf (0 - 5)
[2022-07-29] MEDS ORDERED: DEXTROSE (50%) 50ML SYRG IV PRN (04:00)
[2022-07-29] MEDS ORDERED: ONDANSETRON HCL 4 MG/2 ML VIAL IV PRN (04:00)
[2022-07-29] MEDS ORDERED: NITROGLYCERIN 0.4 MG SL TAB SL PRN (04:00)
[2022-07-29] MEDS ORDERED: ACETAMINOPHEN 325 MG TAB PO PRN (04:00)
[2022-07-29] MEDS ORDERED: DOCUSATE SOD 100 MG CAP PO PRN (04:00)
[2022-07-29] MEDS ORDERED: cefTRIAXone 1GM/50ML D5W 50 ML IV ONE (04:00)
[2022-07-29] MEDS ORDERED: HYDROcodone-ACET 5/325MG TAB PO PRN (04:00)
[2022-07-29] MEDS ORDERED: MORPHINE SULFATE INJ 2 MG/ml SYRG IV PRN (04:00)
[2022-07-29] MEDS ORDERED: ALBUMIN 25% 100 ML IV ONE (04:00)
[2022-07-29] MEDS: SODIUM CHLORIDE 0.9% 1,000 ML IV SCH ×2 (05:21→20:40)
[2022-07-29 06:28] LABS: Basophils # (auto) 0 10 ^3/uL (0-0.2); Hemoglobin 11.8 g/dL (12.2-16.2); Lymphocytes # (auto) 0.9 10 ^3/uL (0.4-5.4); Monocytes # (auto) 0.4 10 ^3/uL (0-1.3); Monocytes % (auto) 8.7 % (0.0-12.0); Neutrophils # (auto) 3.5 10 ^3/uL (1.6-8.6); White Blood Cell 4.9 10^3/uL (4.4-10.8)
[2022-07-29 06:30] LABS: Basophils % (auto) 0.2 % (0.0-2.0); Eosinophils # (auto) 0 10 ^3/uL (0-0.8); Eosinophils % (auto) 0.8 % (0.0-7.0); Hematocrit 33.9 % (36.0-46.0); Mean Corpuscular Hgb Conc. 34.8 g/dL (32.0-36.0); Mean Corpuscular Volume 100.4 fL (80.0-100.0); Neutrophils % (auto) 72.3 % (37.0-80.0); Nucleated Red Blood Cells % 0.2 %; Red Blood Cells 3.38 10^6/uL (4.0-5.20); Red Cell Distribution Width 16.2 % (11.8-14.3)
[2022-07-29 06:51] LABS: Albumin 2.5 g/dL (3.4-5.0); BUN/Creatinine Ratio 37.7 (10.0-20.0); Calcium 7.4 mg/dL (8.5-10.1); Potassium 3.4 mmol/L (3.5-5.1)
[2022-07-29] MEDS: InsuLIN REG 1unit/0.01ml Soln (100units/ml) SC SCH ×4 (06:56→21:54)
[2022-07-29] MEDS: ACCU-CHEK COMFORT CURVE STRIP VI SCH ×4 (06:56→21:54)
[2022-07-29 07:00] LABS: Bilirubin, Total 3.8 mg/dL (0.2-1.0); Total Protein 5.6 g/dL (6.4-8.2)
[2022-07-29 11:15] VITALS: BP 117/44
[2022-07-29 11:48] VITALS: BP 117/44
[2022-07-29 16:10] VITALS: BP 113/52
[2022-07-29] MEDS ORDERED: ONDA-155 PO (16:40)
[2022-07-29] MEDS ORDERED: PANT40TA2 PO (16:40)
[2022-07-29] MEDS ORDERED: LOPE2CAP PO (16:40)
[2022-07-29] MEDS ORDERED: AMLO-489 PO (16:40)
[2022-07-29] MEDS ORDERED: FERR-20 PO (16:40)
[2022-07-29] MEDS ORDERED: EMPA1TAB PO (16:40)
[2022-07-29] MEDS ORDERED: HYDR25TA4 PO (16:40)
[2022-07-29] MEDS ORDERED: LISI20TA28 PO (16:40)
[2022-07-29 20:00] VITALS: BP 112/56
[2022-07-29 22:00] VITALS: BP 124/57
[2022-07-30] VITALS (7 sets, daily range): BP systolic 109–140; BP diastolic 58–65
[2022-07-30 05:54] LABS: Basophils # (auto) 0 10 ^3/uL (0-0.2); Eosinophils # (auto) 0.1 10 ^3/uL (0-0.8); Hemoglobin 12.4 g/dL (12.2-16.2); Neutrophils # (auto) 1.6 10 ^3/uL (1.6-8.6); White Blood Cell 2.7 10^3/uL (4.4-10.8)
[2022-07-30 05:57] LABS: Basophils % (auto) 0.5 % (0.0-2.0); Eosinophils % (auto) 2.3 % (0.0-7.0); Hematocrit 35.8 % (36.0-46.0); Lymphocytes # (auto) 0.8 10 ^3/uL (0.4-5.4); Lymphocytes % (auto) 28.5 % (10.0-50.0); Mean Corpuscular Hemoglobin 34.9 pg (28.0-32.0); Mean Corpuscular Hgb Conc. 34.7 g/dL (32.0-36.0); Mean Corpuscular Volume 100.6 fL (80.0-100.0); Monocytes # (auto) 0.3 10 ^3/uL (0-1.3); Monocytes % (auto) 9.5 % (0.0-12.0); Neutrophils % (auto) 59.2 % (37.0-80.0); Nucleated Red Blood Cells % 0.2 %; Red Blood Cells 3.55 10^6/uL (4.0-5.20); Red Cell Distribution Width 16.6 % (11.8-14.3)
[2022-07-30 06:14] LABS: Potassium 3.7 mmol/L (3.5-5.1)
[2022-07-30] MEDS: ACCU-CHEK COMFORT CURVE STRIP VI SCH ×4 (06:21→21:32)
[2022-07-30] MEDS: InsuLIN REG 1unit/0.01ml Soln (100units/ml) SC SCH ×4 (06:21→21:35)
[2022-07-30 06:23] LABS: Albumin 2.2 g/dL (3.4-5.0); BUN/Creatinine Ratio 38.7 (10.0-20.0); Bilirubin, Total 2.6 mg/dL (0.2-1.0); Calcium 7.5 mg/dL (8.5-10.1); Total Protein 5.6 g/dL (6.4-8.2)
[2022-07-30] MEDS ORDERED: LOPERAMIDE HCL 2 MG CAP/TAB PO PRN (09:15)
[2022-07-30] MEDS: cefTRIAXone 1GM/50ML D5W 50 ML IV SCH (09:22)
[2022-07-30] MEDS ORDERED: ENOXAPARIN SOD 40 MG/0.4 ML SYRINGE SC SCH (10:00)
[2022-07-30] MEDS: LISINOPRIL 20 MG TAB PO SCH (10:19)
[2022-07-30] MEDS: PANTOPRAZOLE 40 MG TAB PO SCH (10:20)
[2022-07-30] MEDS: HCTZ 25 MG TAB PO SCH (10:20)
[2022-07-30] MEDS: amLODIPine BESYLATE 5 MG TAB PO SCH (10:28)
[2022-07-30] MEDS ORDERED: FERROUS SULFATE 325mg EC TAB PO SCH (18:00)
[2022-07-31 05:00] VITALS: BP 116/48
[2022-07-31 06:11] LABS: Basophils # (auto) 0 10 ^3/uL (0-0.2); Eosinophils # (auto) 0.1 10 ^3/uL (0-0.8); Hemoglobin 12.9 g/dL (12.2-16.2); Lymphocytes # (auto) 0.8 10 ^3/uL (0.4-5.4); Monocytes # (auto) 0.2 10 ^3/uL (0-1.3); Red Cell Distribution Width 15.8 % (11.8-14.3)
[2022-07-31 06:15] LABS: Basophils % (auto) 0.7 % (0.0-2.0); Eosinophils % (auto) 3.4 % (0.0-7.0); Hematocrit 36.9 % (36.0-46.0); Mean Corpuscular Hemoglobin 34.7 pg (28.0-32.0); Mean Corpuscular Hgb Conc. 35.1 g/dL (32.0-36.0); Mean Corpuscular Volume 98.9 fL (80.0-100.0); Monocytes % (auto) 6.3 % (0.0-12.0); Neutrophils # (auto) 1.6 10 ^3/uL (1.6-8.6); Neutrophils % (auto) 60.6 % (37.0-80.0); Nucleated Red Blood Cells % 0.1 %; Red Blood Cells 3.73 10^6/uL (4.0-5.20); White Blood Cell 2.7 10^3/uL (4.4-10.8)
[2022-07-31 06:23] LABS: Albumin 2.3 g/dL (3.4-5.0); Calcium 7.9 mg/dL (8.5-10.1); Potassium 3.8 mmol/L (3.5-5.1)
[2022-07-31 06:26] LABS: INR 1.21 (0.9-1.15)
[2022-07-31 06:27] LABS: BUN/Creatinine Ratio 26.5 (10.0-20.0); Bilirubin, Total 2.7 mg/dL (0.2-1.0); Total Protein 5.7 g/dL (6.4-8.2)
[2022-07-31] MEDS: ACCU-CHEK COMFORT CURVE STRIP VI SCH ×2 (06:32→12:03)
[2022-07-31] MEDS: InsuLIN REG 1unit/0.01ml Soln (100units/ml) SC SCH ×2 (06:33→12:02)
[2022-07-31] MEDS ORDERED: EMPAGLIFLOZIN 10 MG TAB PO SCH (07:00)
[2022-07-31 07:30] VITALS: BP 132/62
[2022-07-31 08:30] VITALS: BP 132/62
[2022-07-31] MEDS: cefTRIAXone 1GM/50ML D5W 50 ML IV SCH (09:26)
[2022-07-31] MEDS: HCTZ 25 MG TAB PO SCH (09:26)
[2022-07-31] MEDS: amLODIPine BESYLATE 5 MG TAB PO SCH (09:27)
[2022-07-31] MEDS: LISINOPRIL 20 MG TAB PO SCH (09:27)
[2022-07-31] MEDS: PANTOPRAZOLE 40 MG TAB PO SCH (09:31)
[2022-07-31] MEDS ORDERED: CEPH-510 PO (13:56)
[2022-07-31] MEDS ORDERED: MULTCAP PO (13:56)
[2022-07-31 14:55] VITALS: BP 135/58
== END 2022-07-31 15:41 | disposition home or self-care (01) | DRG 374 ==
LOC: ER 18:24 → OVERFLOW 07-29 03:50 → WEST WING 07-29 10:36
PROVIDERS: ADMIT Nurse Practitioner Family; ATTEND Internal Medicine
DX: C78.6 Secondary malignant neoplasm of retroperitoneum and peritoneum (principal); E43 Unspecified severe protein-calorie malnutrition; N30.00 Acute cystitis without hematuria; Z68.31 Body mass index [BMI] 31.0-31.9, adult; D69.6 Thrombocytopenia, unspecified; K74.60 Unspecified cirrhosis of liver; Z20.822 Contact with and (suspected) exposure to COVID-19; K57.30 Diverticulosis of large intestine without perforation or abscess without bleeding; I25.10 Atherosclerotic heart disease of native coronary artery without angina pectoris; I10 Essential (primary) hypertension; E88.09 Other disorders of plasma-protein metabolism, not elsewhere classified; E11.9 Type 2 diabetes mellitus without complications; Z85.038 Personal history of other malignant neoplasm of large intestine; Z79.84 Long term (current) use of oral hypoglycemic drugs; Z90.49 Acquired absence of other specified parts of digestive tract
CPT/HCPCS: 36415; 71045; 80053; 81001; 82105; 82270; 82378; 82962; 83036; 83605; 83690; 84443; 84484; 85025; 85048; 85610; 85730; 86301; 87045; 87086; 87177; 87426; 87427; 96361; 96365; 96367; G0378; J0696; J1815; P9047

== ENCOUNTER 2022-11-10 11:02 | Emergency (ER) | payer MEDICARE, MEDICAID ==
[~2022-11-10] VITALS: Ht 147.3 cm; Wt 63.0 kg
[~2022-11-10 11:02] MED LIST changes: +AMLO1TAB22 PO; +CEPH-510 PO; +EMPA1TAB PO; +FERR325T24 PO; +HYDR25TA4 PO; +LISI20TA56 PO; +LOPE2CAP PO; +ONDA-155 PO; +PANT40TA2 PO
[2022-11-10 12:27] VITALS: BP 130/49
[2022-11-10] MEDS ORDERED: CEPH500C PO (13:28)
[2022-11-10] MEDS ORDERED: ACET-1080 PO (13:28)
== END 2022-11-10 13:38 | disposition home or self-care (01) ==
LOC: ER 11:02
DX: S60.453A Superficial foreign body of left middle finger, initial encounter (principal); I10 Essential (primary) hypertension; E11.9 Type 2 diabetes mellitus without complications; Z87.821 Personal history of retained foreign body fully removed; Z85.9 Personal history of malignant neoplasm, unspecified; Z98.890 Other specified postprocedural states; Z79.1 Long term (current) use of non-steroidal anti-inflammatories (NSAID); Z79.84 Long term (current) use of oral hypoglycemic drugs; Z79.899 Other long term (current) drug therapy; W22.8XXA Striking against or struck by other objects, initial encounter; Y93.89 Activity, other specified; Y92.89 Other specified places as the place of occurrence of the external cause; Y99.8 Other external cause status

== ENCOUNTER 2023-03-02 13:44 | Emergency (ER) | payer MEDICARE, MEDICAID ==
[~2023-03-02] VITALS: Ht 152.4 cm; Wt 75.0 kg
[~2023-03-02 13:44] MED LIST changes: +ACET-1080 PO; +CEPH500C PO
[2023-03-02 13:53] VITALS: BP 154/67; PULSE 67; RESP 18; TEMP 97.6; O2SAT 98
[2023-03-02 15:45] LABS: Basophils # (auto) 0 10 ^3/uL (0-0.2); Basophils % (auto) 0.6 % (0.0-2.0); Eosinophils # (auto) 0.1 10 ^3/uL (0-0.8); Hemoglobin 15.3 g/dL (12.2-16.2); Monocytes # (auto) 0.3 10 ^3/uL (0-1.3); Neutrophils # (auto) 2.6 10 ^3/uL (1.6-8.6); Nucleated Red Blood Cells % 0.2 %; Red Cell Distribution Width 15.3 % (11.8-14.3)
[2023-03-02 15:48] LABS: Eosinophils % (auto) 1.5 % (0.0-7.0); Hematocrit 44.7 % (36.0-46.0); Lymphocytes # (auto) 0.8 10 ^3/uL (0.4-5.4); Mean Corpuscular Hemoglobin 34.4 pg (28.0-32.0); Mean Corpuscular Hgb Conc. 34.1 g/dL (32.0-36.0); Mean Corpuscular Volume 100.8 fL (80.0-100.0); Monocytes % (auto) 8.9 % (0.0-12.0); Red Blood Cells 4.44 10^6/uL (4.0-5.20); White Blood Cell 3.8 10^3/uL (4.4-10.8)
[2023-03-02 16:08] LABS: Alanine Aminotransferase 56 U/L (7-40); Albumin 3.4 g/dL (3.2-4.8); Alkaline Phosphatase 270 U/L (46-116); Anion Gap 6 (5-15); Aspartate Aminotransferase 78 U/L (13-40); BUN/Creatinine Ratio 21.2 (10.0-20.0); Blood Urea Nitrogen 14 mg/dL (9-23); Calcium 8.9 mg/dL (8.5-10.1); Carbon Dioxide 30 mmol/L (20-30); Chloride 104 mmol/L (98-107); Glucose 238 mg/dL (74-106); Sodium 140 mmol/L (136-145)
[2023-03-02 16:09] LABS: Bilirubin, Total 2.9 mg/dL (0.2-1.0); Total Protein 6.9 g/dL (5.7-8.2)
[2023-03-02 16:17] LABS: CRP High Sensitivity 2.08 mg/dL (<1.0)
[2023-03-02 16:25] LABS: Erythrocyte Sedimentation Rate 20 mm/hr (0-20)
[2023-03-02] MEDS ORDERED: ACETAMINOPHEN 500 MG TAB PO ONE (17:15)
== END 2023-03-02 17:48 | disposition home or self-care (01) ==
LOC: ER 13:44
DX: H11.32 Conjunctival hemorrhage, left eye (principal); D69.6 Thrombocytopenia, unspecified; R51.9 Headache, unspecified; I10 Essential (primary) hypertension; E11.9 Type 2 diabetes mellitus without complications; Z85.9 Personal history of malignant neoplasm, unspecified; Z98.890 Other specified postprocedural states; Z79.899 Other long term (current) drug therapy
CPT/HCPCS: 36415; 80053; 85025; 85652; 86141

== ENCOUNTER 2024-09-18 17:41 | Emergency (ER) | payer MEDICARE, MEDICAID ==
[~2024-09-18] VITALS: Ht 144.8 cm; Wt 60.8 kg
[2024-09-18 18:54] LABS: Basophils # (auto) 0 10 ^3/uL (0-0.2); Basophils % (auto) 0.9 % (0.0-2.0); Eosinophils # (auto) 0.1 10 ^3/uL (0-0.8); Eosinophils % (auto) 1.8 % (0.0-7.0); Hematocrit 41.8 % (36.0-46.0); Hemoglobin 14.3 g/dL (12.2-16.2); Lymphocytes # (auto) 0.7 10 ^3/uL (0.4-5.4); Mean Corpuscular Hemoglobin 34.2 pg (28.0-32.0); Mean Corpuscular Hgb Conc. 34.1 g/dL (32.0-36.0); Mean Corpuscular Volume 100.3 fL (80.0-100.0); Monocytes # (auto) 0.4 10 ^3/uL (0-1.3); Monocytes % (auto) 8.9 % (0.0-12.0); Neutrophils # (auto) 3.1 10 ^3/uL (1.6-8.6); Neutrophils % (auto) 71.4 % (37.0-80.0); Platelet Count (auto) 38 10^3/uL (140-450); Red Blood Cells 4.17 10^6/uL (4.0-5.20); Red Cell Distribution Width 15.1 % (11.8-14.3); White Blood Cell 4.3 10^3/uL (4.4-10.8)
[2024-09-18 19:01] LABS: Chloride 103 mmol/L (98-107); Potassium 4.1 mmol/L (3.5-5.1); Sodium 139 mmol/L (136-145)
[2024-09-18 19:02] LABS: Anion Gap 8 (5-15); Carbon Dioxide 28 mmol/L (20-31)
[2024-09-18 19:03] LABS: Calcium 9.6 mg/dL (8.7-10.4)
[2024-09-18 19:08] LABS: BUN/Creatinine Ratio 22.8 (10.0-20.0); Blood Urea Nitrogen 21 mg/dL (9-23)
[2024-09-18 19:10] LABS: Glucose 283 mg/dL (74-106)
[2024-09-18 19:45] LABS: Platelet Estimate Decreased
[2024-09-18 19:51] LABS: Macrocytosis Slight
[2024-09-18 20:07] LABS: Urine Bacteria FEW /hpf (None Seen); Urine Blood Negative /uL (Negative); Urine Clarity Clear (Clear); Urine Color Light-Yellow (Yellow); Urine Protein, UAD Negative (Negative); Urine Specific Gravity 1.027 (1.001-1.035); Urine Squamous Epithelial Cell FEW /hpf (<5); Urine Urobilinogen Normal (Negative); Urine WBC 5 /HPF (0-5)
[2024-09-18] MEDS ORDERED: CEPH250C PO (21:10)
--- NOTE | 2024-09-18 21:11 | ED.PDOC ---
History of Present Illness HPI Comments Patient is a pleasant but obese 69-year-old female who arrives to the ED today with complaints of generalized weakness and intermittent headache for the past few days. Patient recently had blood work and was told that her platelets were low. Patient states she has had a history of anemia that required transfusions. Patient denies any knowledge as to why she had suffers from blood product concerns. Patient denies any fever nausea or vomiting. Vital signs were stable at arrival. Chief Complaint: Abnormal LAB's Time Seen by MD: 17:48 Primary Care Provider: UNKNOWN Reviewed Notes: Nurses Notes Allergies: Coded Allergies: NO KNOWN ALLERGIES (Unverified , 08/31/17) Home Meds Active Scripts Acetaminophen (Tylenol 8 Hour Arthritis) 650 Mg Tab, 650 MG PO TID, #30 TAB Prov:RENETTA DODD 11/10/22 Cephalexin Monohydrate (Cephalexin) 500 Mg Cap, 1 CAP PO TID, #30 CAP Prov:RENETTA DODD 11/10/22 Cephalexin ( Keflex 500) 500 Mg Cap, 1 CAP PO TID for 5 Days, #15 CAP Prov:BON SHANKAR MD 07/31/22 Multiple Vitamins W/ Minerals (V-C Forte) Cap, 1 TAB PO DAILY for 30 Days, #30 CAP Prov:BON SHANKAR MD 07/31/22 Reported Medications Loperamide Hcl (Loperamide Hcl) 2 Mg Cap, 2 MG PO PRN for FOR DIARRHEA, MG 07/29/22 Pantoprazole Sodium Sesquihydr (Protonix) 40 Mg Tab, 40 MG PO DAILY, #30 TAB 07/29/22 Ondansetron HCl (Ondansetron) 4 Mg Tab, 4 MG PO PRN for NAUSEA / VOMITING, TAB 07/29/22 Empagliflozin (Jardiance) 10 Mg Tab, 10 MG PO DAILY, TAB 07/29/22 Ferrous Sulfate (Ferrous Sulfate) 325 Mg Tab, 325 MG PO BIDWM for 30 Days, MG 07/29/22 Amlodipine Besylate (Amlodipine Besylate) 5 Mg Tab, 10 MG PO DAILY for 30 Days, MG 07/29/22 Hydrochlorothiazide (Hydrochlorothiazide) 25 Mg Tab, 25 MG PO DAILY for 30 Days, MG 07/29/22 Lisinopril (Lisinopril) 20 Mg Tab, 20 MG PO DAILY for 30 Days, MG 07/29/22 Sitagliptin-Metformin Hcl (JANUMET XR) 1 Tab Tab, 1 TAB PO BID, TAB 09/02/17 Calcium Acetate (Phosphate Bin (Calcium Acetate) 667 Mg Cap, 600 MG PO DAILY for 30 Days, MG 09/02/17 Ferrous Sulfate (Iron) 325 Mg Tab, 325 MG PO DAILY, TAB 09/02/17 Glipizide (Glipizide) 10 Mg Tab, 10 MG PO BID for 30 Days, MG 09/02/17 Information Source: Patient Mode of Arrival: Ambulatory Severity: Moderate Timing: Days Duration: Since onset Prehospital treatment: None Past Medical History PAST MEDICAL HISTORY: Cancer, DM, HTN, Liver Surgical History: Hernia Repair TECHNOLOGY APPLICATIONS CONSULTANT History: Denies all TECHNOLOGY APPLICATIONS CONSULTANT Hx Family History Family History: Reviewed,noncontributory to illness Social History Smoker: Non-Smoker Alcohol: Denies ETOH Use Drugs: Denies Drug Use Lives In: Home Constitutional: reports: fatigue; denies: chills, diaphoresis, fever, malaise, sweats, weakness, others EENTM: denies: blurred vision, double vision, ear bleeding, ear discharge, ear drainage, ear pain, ear ringing, eye pain, eye redness, hearing loss, mouth pain, mouth swelling, nasal discharge, nose bleeding, nose congestion, nose pain, photophobia, tearing, throat pain, throat swelling, voice changes, others Respiratory: denies: cough, hemoptysis, orthopnea, SOB at rest, shortness of breath, SOB with excertion, stridor, wheezing, others Cardiovascular: denies: chest pain, dizzy spells, diaphoresis, Dyspnea on exertion, edema, irregular heart beat, left arm pain, lightheadedness, palpitations, PND, syncope, others Gastrointestinal: denies: abdomen distended, abdominal pain, blood streaked bowels, constipated, diarrhea, dysphagia, difficulty swallowing, hematemesis, melena, nausea, poor appetite, poor fluid intake, rectal bleeding, rectal pain, vomiting, others Genitourinary: denies: abnormal vagina bleeding, burning, dyspareunia, dysuria, flank pain, frequency, hematuria, incontinence, pain, , vagina discharge, urgency, others Neurological: reports: headache; denies: dizziness, fainting, left sided numbness, left sided weakness, numbness, paresthesia, pre-existing deficit, right sided numbness, right sided weakness, seizure, speech problems, tingling, tremors, weakness, others Musculoskeletal: denies: back pain, gout, joint pain, joint swelling, muscle pain, muscle stiffness, neck pain, others Integumetry: denies: bruises, change in color, change in hair/nails, dryness, laceration, lesions, lumps, rash, wounds, others Allergic/Immunocompromised: denies: Difficulty Healing, Frequent Infections, Hives, Itching, others Hematologic/Lymphatic: denies: anemia, blood clots, easy bleeding, easy bruising, swollen glands, others Endocrine: denies: excessive hunger, excessive sweating, excessive thirst, excessive urination, flushing, intolerance to cold, intolerance to heat, unexplained weight gain, unexplained weight loss, others Psychiatric: denies: anxiety, bipolar disorder, depression, hopeless, panic disorder, schizophrenia, sleepless, suicidal, others Physical Exam General Appearance: Mild Distress (Patient appears to be in mild distress at time of evaluation. Patient did not look toxic.), Obese HEENT: Normal ENT Inspection, Pharynx Normal, TMs Normal Neck: Full Range of Motion, Non-Tender, Normal, Normal Inspection Respiratory: Chest Non-Tender, Lungs Clear, No Accessory Muscle Use, No Respiratory Distress, Normal Breath Sounds Cardiovascular: No Edema, No JVD, No Murmur, No Gallop, Normal Peripheral Pulses, Regular Rate/Rhythm Breast Exam: Deferred Gastrointestinal: No Organomegaly, Non Tender, No Pulsatile Mass, Normal Bowel Sounds, Soft Genitalia: Deferred Pelvic: Deferred Rectal: Deferred Extremities: No calf tenderness, Normal capillary refill, Non-tender, No pedal edema Neurologic: Alert, No Motor Deficits, Normal Affect, Normal Mood, No Sensory Deficits Cerebellar Function: Normal Reflexes: Normal Skin: Dry, Normal Color, Warm Lymphatic: No Adenopathy Was a procedure done? Was a procedure done?: No Differential Dx Considerations may include: Anemia, thrombocytopenia, pancytopenia, sepsis, electrolyte abnormality X-Ray, Labs, Meds, VS Vital Signs Date Time Temp Pulse Resp B/P (MAP) Pulse Ox O2 Delivery O2 Flow Rate FiO2 09/18/24 18:15 99.1 70 16 133/54 (80) 97 99.1 09/18/24 18:13 72 Lab Test 09/18/24 19:47 09/18/24 18:34 Range/Units Urine Color Light-yellow Yellow Urine Clarity Clear Clear Urine pH 6.0 5.0-9.0 Urine Specific [place] 1.027 1.001-1.035 Urine Protein Negative Negative Urine Ketones Negative Negative Urine Blood Negative Negative /uL Urine Nitrite Negative Negative Urine Bilirubin Negative Negative Urine Urobilinogen Normal Negative mg/dL Urine Leukocyte Esterase 2+ Negative /uL Urine RBC 1 0 - 4 /hpf Urine Microscopic WBC 5 0-5 /HPF Urine Squamous Epithelial Cells Few <5 /hpf Urine Bacteria Few H None Seen /hpf Urine Glucose 4+ H Normal mg/dL White Blood Count 4.3 L 4.4-10.8 10^3/uL Red Blood Count 4.17 4.0-5.20 10^6/uL Hemoglobin 14.3 12.2-16.2 g/dL Hematocrit 41.8 36.0-46.0 % Mean Corpuscular Volume 100.3 H 80.0-100.0 fL Mean Corpuscular Hemoglobin 34.2 H 28.0-32.0 pg Mean Corpuscular Hemoglobin Concent 34.1 32.0-36.0 g/dL Red Cell Distribution Width 15.1 H 11.8-14.3 % Platelet Count 38 L 140-450 10^3/uL Mean Platelet Volume 10.1 6.9-10.8 fL Neutrophils (%) (Auto) 71.4 37.0-80.0 % Lymphocytes (%) (Auto) 17.0 10.0-50.0 % Monocytes (%) (Auto) 8.9 0.0-12.0 % Eosinophils (%) (Auto) 1.8 0.0-7.0 % Basophils (%) (Auto) 0.9 0.0-2.0 % Neutrophils # (Auto) 3.1 1.6-8.6 10 ^3/uL Lymphocytes # (Auto) 0.7 0.4-5.4 10 ^3/uL Monocytes # (Auto) 0.4 0-1.3 10 ^3/uL Eosinophils # (Auto) 0.1 0-0.8 10 ^3/uL Basophils # (Auto) 0 0-0.2 10 ^3/uL Nucleated Red Blood Cells 0.0 % Platelet Estimate Decreased Macrocytosis Slight Sodium Level 139 136-145 mmol/L Potassium Level 4.1 3.5-5.1 mmol/L Chloride Level 103 98-107 mmol/L Carbon Dioxide Level 28 20-31 mmol/L Anion Gap 8 5-15 Blood Urea Nitrogen 21 9-23 mg/dL Creatinine 0.92 0.550-1.02 mg/dL Glomerular Filtration Rate Calc 68 >90 mL/min BUN/Creatinine Ratio 22.8 H 10.0-20.0 Serum Glucose 283 H 74-106 mg/dL Calcium Level 9.6 8.7-10.4 mg/dL Troponin I High Sensitivity 4 </=34 ng/L X-Ray, Labs, Meds, VS Comment All studies performed the ED were evaluated by me personally. Serum laboratories revealed a thrombocytopenic state with a platelet count of 30 eight. Additional findings of hyperglycemia as well as a urinary tract infection were noted. Advised patient utilize antibiotics as directed and follow up with the primary care provider for hematology/oncology referral as the patient will need specialist management to evaluate her low platelet concerns. Time of 1ST Reevaluation: 21:07 Reevaluation 1ST: Improved Consultation: PCP Patient Education/Counseling: Diagnosis, Treatment Family Education/Counseling: Diagnosis, Treatment Departure 1 Departure Time of Disposition: 21:09 Impression: Primary Impression: UTI (urinary tract infection) Additional Impression: Thrombocytopenia Disposition: 01 HOME / SELF CARE / HOMELESS Condition: Stable Additional Instructions: Advised patient utilize antibiotics as directed until completion. Patient will need to follow up with primary care provider for hematology/oncology referral and evaluation to address her thrombocytopenic concerns. e-Prescriptions Cephalexin (KEFLEX CAPSULE) 250 Mg Cp 1 CAP PO QID for 5 Days, #20 CAP Prov: BETSY CHARLES PAC 09/18/24 Discharged With: Self, Friend Critical Care Note Critical Care Time?: No Stability Stability form required: No Heart Score Heart Score: Heart Score Response (Comments) Value History N/A 0 EKG N/A 0 Age N/A 0 Risk Factors N/A 0 Troponin N/A 0 Total 0 BETSY CHARLES PAC September 18, 2024 21:11
[2024-09-18] MEDS: CEPHALEXIN 250 MG CAP PO ONE (21:36)
[2024-09-18] MEDS: ACETAMINOPHEN 325 MG TAB PO ONE (21:36)
[2024-09-18 21:38] VITALS: BP 149/75; PULSE 65; RESP 18; TEMP 98; O2SAT 98
--- NOTE | 2024-09-19 06:15 | ECG ---
[facility] Test Date: 2024-09-18 Test Time: 18:13:36 Pat Name: MARILYN BEEBE Department: ER Room: Gender: F [employer]ace Mason: [place] : 1955 Requested By: BETSY CHARLES Order Number: [id number] Reading MD: Gareth Garcia Measurements Intervals [place] Rate: 72 P: 79 [place]: 155 QRS: 81 QRSD: 152 T: 50 QT: 507 QTc: 556 Interpretive Statements Sinus rhythm Right bundle branch block Electronically Signed On 09-22-2024 11:58:18 PDT by Gareth Garcia Please click the below link to view image of tracing.
== END 2024-09-18 21:54 | disposition home or self-care (01) ==
LOC: ER 17:41
DX: N39.0 Urinary tract infection, site not specified (principal); D69.6 Thrombocytopenia, unspecified; I10 Essential (primary) hypertension; E11.9 Type 2 diabetes mellitus without complications; Z79.84 Long term (current) use of oral hypoglycemic drugs; Z79.899 Other long term (current) drug therapy; Z98.890 Other specified postprocedural states
CPT/HCPCS: 36415; 80048; 81001; 84484; 85025; 93005